=== PATIENT | female | born 1995 | race Caucasian/White ===

== ENCOUNTER 2019-02-14 11:51 | Emergency (ER) | payer MEDICAID ==
[~2019-02-14] VITALS: Ht 167.6 cm; Wt 79.4 kg
[2019-02-14 11:55] VITALS: BP_SYST 148
[2019-02-14] MEDS ORDERED: ACETAMINOPHEN 500 MG TABLET PO ONE (12:45)
[2019-02-14] MEDS ORDERED: LIDOCAINE 1% 10 MG/ML, 20 ML MDV INJ ONE (13:30)
[2019-02-14] MEDS ORDERED: LIDOCAINE 1%, 20 ML MDV 20 ML ONE (13:32)
[2019-02-14] MEDS ORDERED: CEPHALEXIN 500 MG CAPSULE PO ONE (14:00)
[2019-02-14] MEDS ORDERED: BACITRACIN ZINC 15 GM TOPICAL OINTMENT TP ONE (14:00)
[2019-02-14 14:04] VITALS: BP_SYST 141
== END 2019-02-14 14:04 | disposition home or self-care (01) ==
LOC: SED 11:51
DX: S81.012A Laceration without foreign body, left knee, initial encounter (principal); S50.812A Abrasion of left forearm, initial encounter; F17.210 Nicotine dependence, cigarettes, uncomplicated; R03.0 Elevated blood-pressure reading, without diagnosis of hypertension; Y04.0XXA Assault by unarmed brawl or fight, initial encounter; Y93.89 Activity, other specified; Y92.69 Other specified industrial and construction area as the place of occurrence of the external cause; Y99.8 Other external cause status
CPT/HCPCS: 12001; 73090; 73564; 73590; 81002; 81025; 99283; J2001

== ENCOUNTER 2019-03-31 00:52 | Emergency (ER) | payer MEDICAID ==
[~2019-03-31] VITALS: Ht 167.6 cm; Wt 79.8 kg
[2019-03-31 01:03] VITALS: BP_SYST 137
--- NOTE | 2019-03-31 01:03 | NUR ---
Patient to ER bed 4 to gown for evaluation. Side rails up.
--- NOTE | 2019-03-31 01:12 | NUR ---
Patient c/o right great toe pain with swelling. Patient fell over the couch and bent her right great toe back. Patient denies SOB, chest pain, n/v. Patient states it hurts to bear weight on her toes.
--- NOTE | 2019-03-31 01:15 | NUR ---
ER Dr. Todd at bedside examining patient.
--- NOTE | 2019-03-31 01:23 | NUR ---
Radiology at the bedside.
[2019-03-31] MEDS ORDERED: KETOROLAC TROMETHAMINE 60 MG/2 ML VIAL IM ONE (02:00)
--- NOTE | 2019-03-31 02:30 | NUR ---
Patient given written and verbal discharge instructions and verbalizes understanding. ER MD discussed with patient the results and treatment provided. Patient in stable condition. ID arm band removed. Rx of ibuprofen given. Patient educated on pain management and to follow up with PMD. Pain Scale 0/10. Opportunity for questions provided and answered. Medication side effect fact sheet provided.
[2019-03-31 02:34] VITALS: BP_SYST 137
== END 2019-03-31 02:34 | disposition home or self-care (01) ==
LOC: SED 00:52
DX: S93.501A Unspecified sprain of right great toe, initial encounter (principal); W19.XXXA Unspecified fall, initial encounter; Y93.89 Activity, other specified; Y92.89 Other specified places as the place of occurrence of the external cause; Y99.8 Other external cause status
CPT/HCPCS: 73660; 96372; 99283; J1885

== ENCOUNTER 2019-05-05 13:17 | Emergency (ER) | payer MEDICAID ==
[~2019-05-05] VITALS: Ht 167.6 cm; Wt 75.3 kg
--- NOTE | 2019-05-05 13:20 | NUR ---
Patient to ER bed 06 to gown for evaluation. Side rails up.
[2019-05-05 13:22] VITALS: BP_SYST 131
--- NOTE | 2019-05-05 13:22 | NUR ---
Pt brought by self, A&Ox4, ambulatory , pt states she found out today she is aprox 7 weeks , pt concern since she has been drinking and taking Xanax the last couple months, pt ambulatory , respirations even and unlabored, cap refill <3, VSS. pt denies vaginal bleeding.
--- NOTE | 2019-05-05 13:41 | NUR ---
Dr Marin at bedside examining patient
[2019-05-05 14:12] LABS: BASOPHILS % (AUTO) 0.5 % (0.0-2.0); EOSINOPHILS # (AUTO) 0.1 K/uL (0.0-0.4); EOSINOPHILS % (AUTO) 0.5 % (0.0-4.0); HEMATOCRIT 44.8 % (36-48); HEMOGLOBIN 14.8 g/dL (12.0-16.0); LYMPHOCYTES % (AUTO) 16.6 % (20.5-51.5); MEAN CORPUSCULAR HEMOGLOBIN 31 pg (27-31); MEAN CORPUSCULAR HGB CONC 33 % (32-36); MEAN CORPUSCULAR VOLUME 94 fL (79.0-98.0); MONOCYTES # (AUTO) 0.6 K/uL (0.0-1.0); NEUTROPHILS # (AUTO) 9.4 K/uL (1.8-7.7); NEUTROPHILS % (AUTO) 77.4 % (40.0-70.0); PLATELET COUNT (AUTO) 253 K/uL (130-430); RED BLOOD CELL COUNT(AUTO) 4.78 MIL/uL (4.2-6.2); RED CELL DISTRIBUTION WIDTH 15.6 % (9.0-15.0); WHITE BLOOD COUNT (AUTO) 12.1 K/uL (4.8-10.8)
[2019-05-05 14:13] LABS: BASOPHILS # (AUTO) 0.1 K/uL (0.0-0.2)
--- NOTE | 2019-05-05 14:18 | NUR ---
Pt A&Ox4, VSS, respirations even and unlabored, cap refill <3, pt denies Vaginal bleeding
--- NOTE | 2019-05-05 14:30 | NUR ---
Pt A&Ox4, no s/s of distress noted.
[2019-05-05 14:45] VITALS: BP_SYST 128
[2019-05-05 14:47] LABS: CALCIUM 9.5 mg/dL (8.4-11.0); POTASSIUM 3.9 mmol/L (3.5-5.1)
[2019-05-05 14:48] LABS: CREATININE 0.79 mg/dL (0.55-1.30)
[2019-05-05 15:09] LABS: TOTAL BILIRUBIN 0.6 mg/dL (0.0-1.0)
--- NOTE | 2019-05-05 15:36 | NUR ---
Patient does not wish to proceed with medical care recommended by Dr Marin . Patient given information related to possible complications, up to and including , which could occur as a result of leaving hospital at this time. Patient verbalizes understanding of risks involved leaving against medical advice. Patient has signed AMA form.
--- NOTE | 2019-05-05 15:45 | NUR ---
CALLED PT, AT GIVEN NUMBER, TO GET DISC WITH ULTRASOUND ON IT, PT STATES SHE DOES NOT WANT TO COME BACK AND GET IT.
== END 2019-05-05 15:35 | disposition left against medical advice (07) ==
LOC: SED 13:17
DX: O99.321 Drug use complicating pregnancy, first trimester (principal); O99.281 Endocrine, nutritional and metabolic diseases complicating pregnancy, first trimester; E87.2 Acidosis; R03.0 Elevated blood-pressure reading, without diagnosis of hypertension; Z3A.01 Less than 8 weeks gestation of pregnancy
CPT/HCPCS: 36415; 76801; 76817; 80053; 81025; 83690-TC; 84702-TC; 85025; 99284

== ENCOUNTER 2020-02-11 00:10 | Emergency (ER) | payer MEDICAID ==
[~2020-02-11] VITALS: Ht 170.2 cm; Wt 77.1 kg
[2020-02-11 00:48] VITALS: BP_SYST 139
[2020-02-11] MEDS ORDERED: LevALBUTEROL HCL 1.25 MG/0.5 ML *CONC.* VIAL.NEB (XOPENEX CONC.) INH ONE (01:00)
[2020-02-11 01:45] VITALS: BP_SYST 130
== END 2020-02-11 01:45 | disposition home or self-care (01) ==
LOC: SED 00:10
DX: R06.02 Shortness of breath (principal); F12.10 Cannabis abuse, uncomplicated
CPT/HCPCS: 71045; 94640; 99283; J7612

== ENCOUNTER 2020-03-24 19:41 | Emergency (ER) | payer OTHER, MEDICAID ==
[~2020-03-24] VITALS: Ht 167.6 cm; Wt 82.1 kg
[2020-03-24 19:45] VITALS: BP_SYST 136
[2020-03-24 20:36] LABS: BASOPHILS % (AUTO) 0.6 % (0.0-2.0); EOSINOPHILS # (AUTO) 0.2 K/uL (0.0-0.4); EOSINOPHILS % (AUTO) 3.1 % (0.0-4.0); HEMATOCRIT 41.9 % (36-48); HEMOGLOBIN 14.1 g/dL (12.0-16.0); LYMPHOCYTES # (AUTO) 1.9 K/uL (1.0-5.5); LYMPHOCYTES % (AUTO) 26.4 % (20.5-51.5); MEAN CORPUSCULAR HEMOGLOBIN 32 pg (27-31); MEAN CORPUSCULAR HGB CONC 34 % (32-36); MEAN CORPUSCULAR VOLUME 95 fL (79.0-98.0); MONOCYTES # (AUTO) 0.7 K/uL (0.0-1.0); MONOCYTES % (AUTO) 9.8 % (1.7-9.3); NEUTROPHILS # (AUTO) 4.2 K/uL (1.8-7.7); NEUTROPHILS % (AUTO) 60.1 % (40.0-70.0); PLATELET COUNT (AUTO) 245 K/uL (130-430); RED BLOOD CELL COUNT(AUTO) 4.39 MIL/uL (4.2-6.2); RED CELL DISTRIBUTION WIDTH 13.3 % (9.0-15.0)
[2020-03-24 21:18] LABS: CALCIUM 8.2 mg/dL (8.4-11.0); CREATININE 0.9 mg/dL (0.55-1.30); POTASSIUM 3.6 mmol/L (3.5-5.1)
[2020-03-24 21:23] LABS: ALBUMIN 3.8 g/dL (3.4-4.8); INR 0.9 (0.8-1.2); PROTHROMBIN TIME 9.5 SECS (9.5-12.5); TOTAL BILIRUBIN 0.3 mg/dL (0.0-1.0)
[2020-03-24 21:30] VITALS: BP_SYST 159
== END 2020-03-24 21:58 | disposition left against medical advice (07) ==
LOC: SED 19:41
DX: S60.212A Contusion of left wrist, initial encounter (principal); S00.03XA Contusion of scalp, initial encounter; J45.909 Unspecified asthma, uncomplicated; F12.90 Cannabis use, unspecified, uncomplicated; V49.49XA Driver injured in collision with other motor vehicles in traffic accident, initial encounter; Y93.89 Activity, other specified; Y92.413 State road as the place of occurrence of the external cause; Y99.8 Other external cause status
CPT/HCPCS: 36415; 70450-TC; 71045; 80053; 81025; 85025; 85610-TC; 85730-TC; 86886; 86900; 86901; 99285

== ENCOUNTER 2020-10-29 02:01 | Emergency (ER) | payer OTHER, MEDICAID ==
[~2020-10-29] VITALS: Ht 167.6 cm; Wt 77.1 kg
[2020-10-29 02:10] VITALS: BP_SYST 154
--- NOTE | 2020-10-29 02:10 | NUR ---
Patient to ER bed 3 to gown for evaluation. Side rails up.
--- NOTE | 2020-10-29 02:15 | NUR ---
ER at bedside examining patient.
--- NOTE | 2020-10-29 02:28 | NUR ---
Written and verbal consent obtained from patient for blood alcohol, name and verified by patient. Disinfected patient's skin with IODINE that did not contain alcohol or other volatile organic compound. Collected the blood from the subject named by venipuncture, in the presence of Officer YURIDIA. Used a sterile, dry hypodermic needle and dry vacuum blood collection. Two dry vacuum blood collection was supplied by the officer named above. Withdrew a specimen of blood from LEFT HAND of the subject named above. Inverted both blood tubes several times to ensure that the preservative and anticoagulant were thoroughly mixed in the blood specimen. I initialed both blood tube labels for identification. The labeled blood tubes were handed directly to the Officer named above. The blood tubes stopper remained in place while I had possession of the blood tubes. The Officer placed tubes into envelope and sealed it in my presence. Envelope initialed by myself and Officer named above. Patient tolerated well, bandage applied, and bleeding controlled.
[2020-10-29] MEDS ORDERED: BACITRACIN ZINC 15 GM TOPICAL OINTMENT TP ONE (02:30)
[2020-10-29] MEDS ORDERED: DIPH-TET-PERTUS Vaccine 0.5 ML VIAL (ADACEL) I.M. ONE (02:30)
[2020-10-29] MEDS ORDERED: LIDOCAINE/EPI 1% 1:100000 20 ML VIAL INJ ONE ×2 (02:30→02:38)
[2020-10-29] MEDS ORDERED: BACITRACIN 1 GM OINT TP ONE (02:51)
--- NOTE | 2020-10-29 03:00 | NUR ---
Patient has a 1inch laceration to chin. Dr. wilkes applied sutures using sterile technique. Edges well approximated. Site cleansed with betadine. Dressing of gauze applied to site. No bleeding noted. Pt tolerated well.
--- NOTE | 2020-10-29 03:01 | NUR ---
Patient given written and verbal discharge instructions and verbalizes understanding. ER MD discussed with patient the results and treatment provided. Patient in stable condition. ID arm band removed. no Rx of given. Patient educated on pain management and to follow up with PMD. Pain Scale 2/10. Opportunity for questions provided and answered. Medication side effect fact sheet provided.
[2020-10-29 03:05] VITALS: BP_SYST 149
== END 2020-10-29 03:05 ==
LOC: SED 02:01
DX: S01.81XA Laceration without foreign body of other part of head, initial encounter (principal); V49.9XXA Car occupant (driver) (passenger) injured in unspecified traffic accident, initial encounter; Y93.89 Activity, other specified; Y92.89 Other specified places as the place of occurrence of the external cause; Y99.8 Other external cause status
CPT/HCPCS: 90715; 99283

== ENCOUNTER 2020-11-06 22:40 | Emergency (ER) | payer MEDICAID, OTHER ==
[~2020-11-06] VITALS: Ht 167.6 cm; Wt 81.6 kg
[2020-11-06 23:08] VITALS: BP_SYST 137
--- NOTE | 2020-11-06 23:11 | NUR ---
Patient triaged and placed in waiting room. VSS and patient appears in no acute distress at this time. Awaiting available bed, and MD notified of need for MSE.
--- NOTE | 2020-11-07 02:00 | NUR ---
pt remains in waiting room. sutures to chin. no reddnes noted, appears dry and well healing. pt states there is pain to area. States put in 2 weeks ago, but unable to get transportation to have them removed. Pt denies other complaints at this time
--- NOTE | 2020-11-07 02:05 | NUR ---
Dr Todd to see patient in waiting room. [address] Todd was mcadams to a code in the ER Room 5.
--- NOTE | 2020-11-07 02:45 | NUR ---
Pt Eloped at 0081
--- NOTE | 2020-11-07 02:45 | NUR ---
Pt at ER Admitting desk. Very upset, stating that she was just left there and she was tired and just wanted to go home. Attempted to convince patient to stay for continuation of treatment, or to at least let me have a chance to talk to the MD. She refused and left angry
== END 2020-11-07 02:45 | disposition left against medical advice (07) ==
LOC: SED 22:40
DX: S01.81XD Laceration without foreign body of other part of head, subsequent encounter (principal); X58.XXXD Exposure to other specified factors, subsequent encounter
CPT/HCPCS: 99281

== ENCOUNTER 2021-03-29 12:09 | Emergency (ER) | payer MEDICAID ==
[~2021-03-29] VITALS: Ht 167.6 cm; Wt 81.6 kg
[2021-03-29 12:10] VITALS: BP_SYST 137
--- NOTE | 2021-03-29 12:10 | NUR ---
BROUGHT BACK TO BED #3 VIA WHEELCHAIR, PLACED IN BED AND TRIAGED. REPORT GIVEN TO NURSE
--- NOTE | 2021-03-29 12:20 | NUR ---
JAMILA Avalos at bedside examining patient.
--- NOTE | 2021-03-29 12:30 | NUR ---
Patient transported to radiology via at the bedside
[2021-03-29] MEDS ORDERED: IBUPROFEN 600 MG TABLET PO ONE (14:30)
[2021-03-29] MEDS ORDERED: IBUP-1969 PO (14:34)
--- NOTE | 2021-03-29 14:45 | NUR ---
Patient given written and verbal discharge instructions and verbalizes understanding. ER MD discussed with patient the results and treatment provided. Patient in stable condition. ID arm band removed. Patient educated on pain management and to follow up with PMD. Pain Scale 3/10. Opportunity for questions provided and answered. Medication side effect fact sheet provided.
[2021-03-29 14:48] VITALS: BP_SYST 137
--- NOTE | 2021-03-29 14:48 | NUR ---
Note undone in EDM - 03/29/21 at 1501 by MARLON Patient given written and verbal discharge instructions and verbalizes understanding. ER discussed with patient the results and treatment provided. Patient in stable condition. ID arm band removed. Patient educated on pain management and to follow up with PMD. Pain Scale 3/10.Opportunity for questions provided and answered. Medication side effect fact sheet provided.
== END 2021-03-29 14:45 | disposition home or self-care (01) ==
LOC: SED 12:09
DX: S93.402A Sprain of unspecified ligament of left ankle, initial encounter (principal); W01.0XXA Fall on same level from slipping, tripping and stumbling without subsequent striking against object, initial encounter; Y93.89 Activity, other specified; Y92.89 Other specified places as the place of occurrence of the external cause; Y99.8 Other external cause status
CPT/HCPCS: 99283

== ENCOUNTER 2023-08-17 12:05 | Emergency (ER) | payer MEDICAID ==
[~2023-08-17] VITALS: Ht 170.2 cm; Wt 77.1 kg
[~2023-08-17 12:05] MED LIST: IBUP-1969 PO
[2023-08-17 12:19] VITALS: BP_SYST 153; PULSE 82; RESP 20; TEMP 97.9; O2SAT 100
[2023-08-17] MEDS ORDERED: MECLIZINE HCL 25 MG TABLET (ANITVERT) PO ONE (12:30)
[2023-08-17 12:41] LABS: BASOPHILS # (AUTO) 0.1 K/uL (0.0-0.2); BASOPHILS % (AUTO) 0.6 % (0.0-2.0); EOSINOPHILS # (AUTO) 0.5 K/uL (0.0-0.4); EOSINOPHILS % (AUTO) 5.5 % (0.0-4.0); HEMOGLOBIN 15.3 g/dL (12.0-16.0); LYMPHOCYTES # (AUTO) 2.3 K/uL (1.0-5.5); LYMPHOCYTES % (AUTO) 27.9 % (20.5-51.5); MEAN CORPUSCULAR HEMOGLOBIN 31 pg (27-31); MEAN CORPUSCULAR HGB CONC 33 % (32-36); MEAN CORPUSCULAR VOLUME 92 fL (79.0-98.0); MONOCYTES # (AUTO) 0.6 K/uL (0.0-1.0); MONOCYTES % (AUTO) 6.7 % (1.7-9.3); NEUTROPHILS # (AUTO) 4.9 K/uL (1.8-7.7); NEUTROPHILS % (AUTO) 59.3 % (40.0-70.0); PLATELET COUNT (AUTO) 283 K/uL (130-430); RED BLOOD CELL COUNT(AUTO) 5.01 MIL/uL (4.2-6.2); RED CELL DISTRIBUTION WIDTH 13.1 % (9.0-15.0); WHITE BLOOD COUNT (AUTO) 8.3 K/uL (4.8-10.8)
[2023-08-17 12:55] LABS: ANION GAP 12 (5-15); CALCIUM 8.7 mg/dL (8.4-11.0); CARBON DIOXIDE 25 mmol/L (23-29); CHLORIDE 104 mmol/L (98-107); GFR AFRICAN AMERICAN 126 mL/min (>90); GLUCOSE 94 mg/dL (74-106); POTASSIUM 3.9 mmol/L (3.5-5.1); SODIUM SERUM 141 mmol/L (136-145); UREA NITROGEN, BLOOD 7 mg/dL (8-21)
[2023-08-17 12:56] LABS: GFR NON AFRICAN-AMERICAN 104 mL/min (>90)
[2023-08-17] MEDS ORDERED: ACETAMINOPHEN 325 MG TABLET PO ONE (13:00)
[2023-08-17] MEDS ORDERED: MECL-225 PO (14:25)
[2023-08-17 14:33] VITALS: BP_SYST 145; PULSE 82; RESP 21; TEMP 97.9; O2SAT 98
== END 2023-08-17 14:10 | disposition home or self-care (01) ==
LOC: SED 12:05
DX: R42 Dizziness and giddiness (principal); R51.9 Headache, unspecified; I16.0 Hypertensive urgency; I10 Essential (primary) hypertension; R11.10 Vomiting, unspecified; F12.90 Cannabis use, unspecified, uncomplicated; Z79.899 Other long term (current) drug therapy
CPT/HCPCS: 99285; 70450; 71045; 80048; 85025; 84484; 36415; 93005; 76376; 81025; J8597